=== PATIENT | male | born 1960 | race American Indian/Alaskan Native ===

== ENCOUNTER 2024-09-11 13:51 | Emergency (ER) | payer MEDICAID, SELFPAY ==
[2024-09-11] VITALS (7 sets, daily range): BP systolic 82–125; BP diastolic 50–75; PULSE 83–119; RESP 14–96; TEMP 36.7–37.2; O2SAT 94–96; BMI 32.3
--- NOTE | 2024-09-11 13:55 | XR_ITS ---
Examination: CT brain head without contrast. 2-D sagittal coronal reconstructions Date and time of exam:September 11, 2024 1359 hrs. Comparison August 08, 2024 Indications: Stroke alert, onset focal neurologic deficit altered mental status today CTDI: vol (mGy):52.1 DLP: (mGycm):1046 Technique: Multiple CT axial sections of the brain have been obtained, 5 mm slice thickness. Contrast has not been administered. 2-D sagittal, coronal reconstructions have been obtained Low dose protocols were performed. One or more of the following dose reduction techniques were used; automated exposure control, adjustment of the mA and/or KV according to patient size, use of iterative reconstruction technique. Findings: Interval acute hemorrhage in the left frontal parietal lobe, axial image 16, coronal image 23, 20 x 28 mm Smaller subdural hematoma peripheral to the left cerebral hemisphere, measuring 9 mm in thickness at the level of the frontal horns compared to 19 mm on June 08, 2024, however subdural hematoma peripheral to the left temporal lobe measures 12 mm in thickness compared to 11 mm on August 08, 2024 Larger acute on chronic right subdural hematoma peripheral to the right cerebral hemisphere, at the level of the frontal horns measuring up to 16 mm in thickness Anterior cerebral falx subdural hemorrhage 2 mm in thickness Encephalomalacia left occipital lobe No definite shift of the frontal horns Left craniotomy defects Impression: Interval acute hemorrhage in the left frontal parietal lobe, 20 x 28 mm Larger acute on chronic right subdural hematoma peripheral to the right cerebral hemisphere, at the level of the frontal horns measuring 16 mm in thickness compared to 11 mm on August 08, 2024 Acute on chronic left subdural hematoma peripheral to the left cerebral hemisphere measures 9 mm in thickness compared to 19 mm on June 08, 2024
--- NOTE | 2024-09-11 13:55 | EKG_ITS ---
[facility] Test Date: 2024-09-11 Pat Name: SHER LACY Department: Room: - Gender: Male Tuber Operator: : 1960 Requested By: Igor Priest Order Number: [id number] Reading MD: Igor Priest Measurements Intervals [place] Rate: 109 P: FL: QRS: 46 QRSD: 86 T: 54 QT: 302 QTc: 407 Interpretive Statements ATRIAL FIBRILLATION WITH RAPID VENTRICULAR RESPONSE NONSPECIFIC ST & T-WAVE ABNORMALITY ABNORMAL RHYTHM ECG No previous ECG available for comparison /store/S0/[id number]/ecg/[id number].pdf
--- NOTE | 2024-09-11 13:55 | XR_ITS ---
Examination: CTA carotids with intravenous contrast CTA brain, head with intravenous contrast. 2-D sagittal, coronal reconstructions. 3-D reconstructions. Exam date and time: 03/11/2024 at 1512 hrs. Indications: Stroke alert today, onset focal neurologic deficit, altered mental status slurred speech, CT stroke alert brain scan today interval acute hemorrhage in the left frontal parietal, bilateral central pelvis CTDI: vol (mGy) 11.3 DLP: (mGycm) 430 Technique: Multiple CTA axial brain, head carotid images post intravenous contrast injection 75 cc, [id number]. 2-D sagittal, coronal reconstructions. 3-D reconstructions, 3-D post processing including vascular maximum intensity projection images. Low dose protocols were performed. One or more of the following dose reduction techniques were used; automated exposure control, adjustment of the mA and/or KV according to patient size, use of iterative reconstruction technique. Findings: 18 mm right tracheobronchial lymph node No significant common carotid carotid bifurcation or internal carotid artery stenoses Dominant left vertebral artery with no critical stenoses Basilar artery posterior cerebral artery branches fill Juxtasellar supraclinoid portions both internal carotid arteries fill M1 segment right middle cerebral artery fills with reduced filling of right middle cerebral artery trifurcation branches Left M1 segment middle cerebral artery appears to bifurcate into proximal middle cerebral artery branches with significant decrease in filling left middle cerebral artery trifurcation vessels Impression: No significant neck arterial stenoses Reduced filling middle cerebral artery trifurcation vessels bilaterally, which may relate to mass effect from the patient's bilateral subdural hematomas
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
[2024-09-11 14:23] LABS: Basophils % (Auto) 0 % (0-2.5); Eosinophils % (Auto) 0 % (0-10); Hematocrit 24.6 % (41.0-53.0); Immature Granulocytes % (Auto) 7 % (0-0); Immature Granulocytes Auto 0.41 Thou/mm3 (0.00-0.00); Lymphocytes # (Auto) 1.7 Thou/mm3 (1.0-4.8); Lymphocytes % (Auto) 27 % (10-50); Mean Corpuscular HGB Conc 30.9 g/dl (31.0-37.0); Mean Corpuscular Volume 84 fL (80-100); Monocytes # (Auto) 0.2 Thou/mm3 (0.0-0.8); Monocytes % (Auto) 4 % (0-12); Neutrophils # (Auto) 3.9 Thou/mm3 (1.8-7.7); Neutrophils % (Auto) 62 % (37-80); Nucleated Red Blood Cell # 0.14 Thou/mm3 (0.00-0.00); Nucleated Red Blood Cell % 2 /100 WBC (0); RDW Standard Deviation 48.3 fL (35.1-43.9); Red Blood Count 2.92 Miln/mm3 (4.50-5.90); White Blood Count 6.3 Thou/mm3 (3.8-10.6)
[2024-09-11 14:36] LABS: INR 1.7 (0.9-1.3); Partial Thromboplastin Time 46.6 Seconds (22.0-36.0); Prothrombin Time 18.2 Seconds (9.0-12.2)
[2024-09-11 14:37] LABS: Hemoglobin 7.6 g/dL (13.5-16.0); Platelet Count 27 Thou/mm3 (140-440)
--- NOTE | 2024-09-11 14:43 | PC.CM ---
1342 clinicals sent to [facility]. 1335 called [facility], spoke to Yari and initiated the transfer. She wants to speak with Igor Irving. Call transferred. 1330 received call from Igor Irving that pt needs to be transferred for Interval acute hemorrhage in the left frontal parietal lobe, Larger acute on chronic right subdural hematoma peripheral to the right cerebral hemisphere, Acute on chronic left subdural hematoma peripheral to the left cerebral hemisphere. He stated to transfer pt to [facility] where pt was transferred last time and has his surgery need neuro-surgery services and continuation of care services.
--- NOTE | 2024-09-11 14:49 | PC.CM ---
Addendum entered by Paradise Wu RN 09/11/24 17:36: late note 1659 called [facility], spoke to ERIC and setup the stat transport. stated team is on their way to pick up operator the pt. Addendum entered by Paradise uW RN 09/11/24 17:34: 1735 sent paperwork to [facility] via fax. Addendum entered by Paradise Wu RN 09/11/24 17:29: 1715 Pt is confused, called sister twice to obtain sign on pink form, unable to get hold of the sister. Dr. Patel signed on pt's behalf. Transfer packet is complete including all signatures. I am unable to burn CD for the pt. X-Ray tech informed me due to [employer], there is a problem with CD burner. I informed bedside nurse and charge nurse, unable to burn CD but images were sent to [facility] through [employer]. Ambulance at bedside to pick up operator the pt. Transfer Packet given to bedside nurse. Addendum entered by Paradise Wu RN 09/11/24 16:55: 1651 called and informed charge nurse. Per charge, pt to go via ground transport and nurse nurse is not needed for ground transport. 1649 Breezy from [facility] called back and stated he checked with his crew and crew is not comfortable with transporting the pt via ground until the weather is clear. He stated he can recheck the weather at 1900 and see if the weather is clear then pt might go by air. 1639 called [facility], spoke to Breezy to setup the transport. He stated they are declining due to weather. I asked if [facility] can provide us ground transport. He stated he will call me back. 1630 spoke to Igor Irving, he stated transfer setup by [facility] (Weather is very bad today) If [facility] declines due to weather. Then if I can ask [facility] if they can transport the pt by ground. Addendum entered by Paradise Wu RN 09/11/24 16:21: 1622 called [facility], spoke to Yari regarding accepting info. Pt is accepted at [facility] for ED to ED transfer. Accepting Dr. is Carlito Marina. Call report at [phone]. 2150 received call from ER that pt is accepted at [facility]. I will call [facility] to get accepting info. Original Note: 1448 images sent to [facility] through [facility]. 1442 clinicals sent to [facility]. 1435 called [facility], spoke to Yari and initiated the transfer. She wants to speak with Igor Irving. Call transferred. 1430 received call from Igor Irving that pt needs to be transferred for Interval acute hemorrhage in the left frontal parietal lobe, Larger acute on chronic right subdural hematoma peripheral to the right cerebral hemisphere, Acute on chronic left subdural hematoma peripheral to the left cerebral hemisphere. He stated to transfer pt to [facility] where pt was transferred last time and has his surgery need neuro-surgery services and continuation of care services.
[2024-09-11 14:52] LABS: Alanine Aminotransferase < 7 U/L (10-49); Albumin, Serum 2.7 gm/dL (3.4-4.8); Albumin/Globulin Ratio 0.8 (1.2-2.2); Alkaline Phosphatase 1136 U/L (46-116); Anion Gap 8 (7-16); Aspartate Amino Transferase 41 U/L (0-34); BUN/Creatinine Ratio 32 Ratio (12-20); Bilirubin,Total 0.7 mg/dL (0.3-1.2); Blood Urea Nitrogen 19 mg/dL (9-23); Carbon Dioxide 28.8 mMol/L (20.0-31.0); Chloride 102 mMol/L (98-107); Creatinine (Component) 0.6 mg/dL (0.6-1.3); Estimated Creatinine Clearance 131.2 mL/min (>60); Globulin 3.4 gm/dL (2.3-3.5); Glucose 125 mg/dL (74-106); Magnesium 1.8 mg/dL (1.6-2.6); Osmolality,Calculated 280 (275-295); Potassium 3.2 mMol/L (3.4-5.1); Sodium 139 mMol/L (136-145); Total Protein 6.1 gm/dL (5.7-8.2); Troponin I < 0.020 ng/mL (0.0-0.045); eGFR > 60 See Note
--- NOTE | 2024-09-11 14:52 | PD.TNEURO ---
Tele Neuro Consultation Consultation Date 09/11/24 Most Recent Vital Signs Last Vital Signs Temp 98.0 F 09/11/24 14:30 Pulse 119 H 09/11/24 14:30 Resp 20 09/11/24 14:30 BP 95/56 L 09/11/24 14:30 Pulse Ox 94 L 09/11/24 14:30 O2 Del Method Room Air 09/11/24 14:30 Laboratory-Coagulation Panel PT 18.2 Seconds (9.0-12.2) H 09/11/24 14:10 INR 1.7 (0.9-1.3) H 09/11/24 14:10 APTT 46.6 Seconds (22.0-36.0) H 09/11/24 14:10 Consultation Narrative [facility] Tele[facility]urology Consult [facility] Patient Name:???Odilon Sheriff Date of :???1960 Identification Number:??? 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 He is confused on exam but no weakness noted. CT head with ICH and increased subdural on the left. Significant thrombocytopenia with plt= 27. Recommend keppra, plt transfusion, stat neurosurgical consultation. Recommendation: Medications:? Load with Keppra 1gm now. ? Keppra 500mg bid. Nursing Recommendations: ? Telemetry, IV Fluids?Avoid dextrose containing fluids, Maintain euglycemia ? Head of bed 30 degrees ? Neuro checks q1-2?hrs?during ICU stay ? Once stable neuro checks q4?hrs ? keep BP less than 140/90's with goal of 130/80s Consultations: ? Need Neurosurgery consultation?STAT ? Recommend Speech therapy if failed dysphagia screen ? Physical therapy/Occupational therapy Disposition: ? Neurology will sign off Metrics: Last Known Well: 09/10/2024 17:00:00 Dispatch Time: 09/11/2024 13:48:50 Arrival Time: 09/11/2024 13:51:00 Initial Response Time: 09/11/2024 13:56:22Symptoms: confusion, right sided weakness. Initial patient interaction: 09/11/2024 14:03:31 NIHSS Assessment Completed: 09/11/2024 14:09:18Patient is not a candidate for Thrombolytic. Thrombolytic Medical Decision: 09/11/2024 14:09:19Patient was not deemed candidate for Thrombolytic because of following reasons: Significant head trauma or stroke in previous 3 months . Current intracranial hemorrhage . I personally Reviewed the CT Head and it Showed acute left frontoparietal hemorrhage, larger left subdural acute on chronic, smaller right subdural Primary Provider Notified of Diagnostic Impression and Management Plan on: 09/11/2024 14:50:41 History of Present Illness:Patient is a 64 year old Male. Patient was brought by EMS for symptoms of confusion, right sided weakness. 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 He was noted to be altered today by family and had transient right sided weakness around 5 p.m. yesterday reported. He is bedbound recently since the multiple hospitalizations but is normally verbal and coherent per EMS. Family reported he was altered today. ? Past Medical History: ?Hypertension Medications: No Anticoagulant use? Antiplatelet use:?Yes?plavix Reviewed EMR for current medications Allergies:? Reviewed Social History: Drug Use: No Family History: There is no family history of premature cerebrovascular disease pertinent to this consultation ROS : 14 Points Review of Systems was performed and was negative except mentioned in HPI. Past Surgical History: There Is No Surgical History Contributory To Today?s Visit ? Examination: BP(95/56),?Pulse(119), 1A: Level of Consciousness - Requires repeated stimulation to arouse?+ 2 1B: Ask Month and Age - Could Not Answer Either Question Correctly?+ 2 1C: Blink Eyes & Squeeze Hands - Performs 1 Task?+ 1 2: Test Horizontal Extraocular Movements - Normal?+ 0 3: Test Visual Parra - No Visual Loss?+ 0 4: Test Facial Palsy (Use Grimace if Obtunded) - Normal symmetry?+ 0 5A: Test Left Arm Motor Drift - No Drift for 10 Seconds?+ 0 5B: Test Right Arm Motor Drift - No Drift for 10 Seconds?+ 0 6A: Test Left Leg Motor Drift - Drift, hits bed?+ 2 6B: Test Right Leg Motor Drift - Drift, hits bed?+ 2 7: Test Limb Ataxia (FNF/Heel-Chaudhry) - No Ataxia?+ 0 8: Test Sensation - Normal; No sensory loss?+ 0 9: Test Language/Aphasia - Normal; No aphasia?+ 0 10: Test Dysarthria - Mild-Moderate Dysarthria: Slurring but can be understood?+ 1 11: Test Extinction/Inattention - No abnormality?+ 0 NIHSS Score:?10 ICH Score: 2 Chikis Coma Score:5-12 (+1) Age >= 80:No (0) ICH volume >= 30mL:Yes (+1) Intraventricular hemorrhage:No (0) Infratentorial origin of hemorrhage:No (0) Pre-Morbid Modified Servando Scale:5 Points = Severe disability; bedridden, incontinent and requiring constant nursing care and attention This consult was conducted in real time using interactive audio and video technology. Patient was informed of the technology being used for this visit and agreed to proceed. Patient located in hospital and provider located at home/office setting. Due to the immediate potential for life-threatening deterioration due to underlying acute neurologic illness, I spent 46 minutes providing critical care. This time includes time for face to face visit via telemedicine, review of medical records, imaging studies and discussion of findings with providers, the patient and/or family. Dr Catherine Blair [facility] For Inpatient follow-up with [facility] physician please call [facility] at . As we are not an outpatient service for any post hospital discharge needs please contact the hospital for assistance. If you have any questions for the [facility] physicians or need to reconsult for clinical or diagnostic changes please contact us via [facility] at .
[2024-09-11] MEDS: SODIUM CHLORIDE 0.9% 500 ML 500 ML 999 ML IV (15:02)
[2024-09-11] MEDS: levETIRAcetam INJ 100 MG/ML VIAL 5ML 1000 MG IVP (15:02)
[2024-09-11 15:34] LABS: Collection Type, Urine Clean Catch; Squamous Epithelial Cell,Urine 0 /hpf (0-5)
[2024-09-11 16:00] LABS: Bacteria,Urine 4+; Bilirubin,Urine Negative (Negative); Blood,Urine 3+ (Negative); Color,Urine Yellow (Lt Yel-Yel); Glucose, Urine Negative (Negative); Ketones,Urine Negative (Negative); Leukocyte Esterase,Urine Positive (Negative); Nitrite,Urine Negative (Negative); Protein,Urine 1+ (Neg - Trace); RBC,Urine 23 /hpf (0-3); Specific Gravity,Urine 1.037 (1.001-1.035); Uric Acid Crystals,Urine 4+; Urobilinogen,Urine Negative mg/dL (0.0-1.0); WBC,Urine 41 /hpf (0-5)
[2024-09-11 16:01] LABS: Slide Review Platelets confirmed
[2024-09-11 16:03] LABS: Path Review Blood Smear Sent to Pathologist
[2024-09-11 16:09] LABS: Clarity,Urine Turbid (Clear/Hazy)
[2024-09-11] MEDS: TRANEXAMIC ACID INJ 1,000 MG/10 ML VIAL 1000 MG IV (16:26)
[2024-09-11 16:47] LABS: Amphetamine/Methamp Scrn,U Negative (Negative); Barbiturate Screen,Urine Negative (Negative); Benzodiazepines Screen,Urine Negative (Negative); Benzoylecgonine Screen, Ur Negative (Negative); Fentanyl Screen,Urine Negative (Negative); Opiate Screen,Urine Negative (Negative); THC Screen,Urine Negative (Negative)
--- NOTE | 2024-09-11 17:52 | EDNOTE_ITS ---
Emergency Room Addendum Addendum Narrative: Prior to transfer at 1750 2 PM the patient had 2 blood pressures 125/70 with a MAP of 87 a second blood pressure with a systolic of 118. At this time if EMS allows the patient to bend his arm he gets an abnormal reading we were able to take it twice with no downtrending of the blood pressure. 1752: Discussed with Dr. Alejandro neurosurgery at [facility] who agrees that as long as the blood pressure and route stays above 70 MAP that EMS does not need to call him and no medications are needed if needed they could give him a small bolus however I reported to EMS if they feel uncomfortable or feel the patient becomes unstable they need to reroute to the closest hospital. EMS at this time feels comfortable transporting the patient.
--- NOTE | 2024-09-11 18:01 | PC.NURSE ---
REPORT [facility] TO [facility] AND SPOKE WITH RAND. ALL QUESTIONS ANSWERED.
== END 2024-09-11 18:00 | disposition short-term general hospital (02) ==
LOC: SERX 15:16
PROVIDERS: Registered Nurse General Practice; Emergency Provider Emergency Medicine; PCP Physician Assistant
DX: I62.01 Nontraumatic acute subdural hemorrhage (principal); I62.03 Nontraumatic chronic subdural hemorrhage; I48.91 Unspecified atrial fibrillation; I10 Essential (primary) hypertension; R29.707 NIHSS score 7; Z87.891 Personal history of nicotine dependence; Z75.1 Person awaiting admission to adequate facility elsewhere
CPT/HCPCS: 36415; 70450; 70496; 70498; 80053; 80307; 81001; 83735; 84484; 84703; 85025; 85610; 85730; 86850; 86900; 86901; 86923; 86965; 87086; 93005; 96361; 96374; 99285; A4649; J1953; J3490; J7040; Q9967

== ENCOUNTER 2024-09-13 20:36 | Emergency (ER) | payer MEDICAID, SELFPAY ==
[2024-09-13 20:47] VITALS: BP 110/81; PULSE 80; RESP 18; TEMP 36.5; O2SAT 100
--- NOTE | 2024-09-13 20:50 | PC.NURSE ---
SPOKE WITH MARLEE FROM [facility] [phone] AND SHE IS AWARE OF SITUATION, SHE STATES SHE WILL CALL OUR INTELLECTUAL PROPERTY LAWYER IN AM
--- NOTE | 2024-09-13 22:13 | PD.EDADULT ---
ED General RME/HPI General Chief complaint: General Adult/Misc Complain Stated complaint: HOSPICE Time Seen by Provider: 09/13/24 22:12 Arrival date/time: 09/13/24 20:36 RME / HPI RME / HPI narrative: Dr. Cornejo?s Main ED Evaluation: 64yo male with recently dx bilateral subdural hematomas BIBA from [facility] for social service coordinator consultation. Patient was discharged from [facility] in [place] and was transferred today to [facility] on hospice. EMS endorses the patient's next-of-kin was not there to sign the consents for hospice paperwork, so facility staff sent the patient over for social service coordinator consultation. Full ROS is unobtainable due to the patient's medical condition. Related Data Allergies Allergy/AdvReac Type Severity Reaction Status Date / Time No Known Allergies Allergy Verified 08/09/24 01:58 Review of Systems Review of Systems ROS Unobtainable: unobtainable due to medical condition Past Medical History Past Medical History NEUROLOGIC: Positive Neurological Disorders and Subdural Hematoma; Negative Seizures CARDIAC: Negative Congestive Heart Failure RESPIRATORY: Negative Chronic Obstructive Pulmonary Disease (COPD) GENITOURINARY: Negative Renal Disease ENDOCRINE: Negative Diabetes Mellitus Type 1 or Diabetes Mellitus Type 2 OTHER HISTORY: Negative Blood Transfusions, Blood Transfusion Reaction or Anesthesia Reactions Social History SMOKING STATUS: Never smoker SUBSTANCE USE: unknown ED Exam Narrative Physical exam: GENERAL APPEARANCE: AxOx self, generally well-appearing, no acute distress. HEENT: NC, surgical scar to the upper scalp that is C/D/I. MMM. EOMI, clear conjunctiva, oropharynx clear. NECK: Supple without lymphadenopathy. No stiffness or restricted ROM. HEART: Normal rate and regular rhythm, normal S1/S1, no m/r/g LUNGS: CTAB, moving air well. No crackles or wheezes are heard. ABDOMEN: Soft, nontender, nondistended with good bowel sounds heard. BACK: No midline C/T/L spine pain or deformity, No CVAT, no obvious deformity. EXTREMITIES: Without cyanosis, clubbing or edema. MUSCULOSKELETAL: FROM of all major joints, no chest tenderness NEUROLOGICAL: Grossly nonfocal. Alert and oriented, moving all 4 extremities. CN not formally tested but appear grossly intact. Skin: Warm and dry without any rash. Ecchymosis of various stages throughout the BUE. Course Course Course Narrative: 0600: Care signed out to the next oncoming provider. Past medical, surgical, social and family history reviewed. Vitals and home medications reviewed. Results and treatment plan discussed. They will assume the care of the patient at this time and will follow the patient, pending social service coordinator consultation. Quality Measures none Orders Category Date Time Status Consult Silver Cleaner NOW Care 09/14/24 01:19 Active Vital Signs Vital signs: Vital Signs Temperature 97.7 F 09/13/24 20:47 Pulse Rate 80 09/13/24 20:47 Respiratory Rate 18 09/13/24 20:47 Blood Pressure 110/81 09/13/24 20:47 Pulse Oximetry (%) 100 09/13/24 20:47 Oxygen Delivery Method Nasal Cannula 09/13/24 20:47 Oxygen Flow Rate 2 09/13/24 20:47 [facility] Patient data External records reviewed:: [facility] previous records (Per chart review, patient was seen here on 09/11/24 for bilateral subdural hematomas.) Clinical information provided by:: EMS Social determinants that could affect healthcare access:: none Patient has the following chronic illnesses:: subdural hematoma How is presenting disease/condition affected by chronic disease/condition?: uneffected by Evaluation data The following diagnostics were reviewed and interpreted by me:: other (specify) (none) Lab and/or radiology exams considered but not ordered:: none Interpretation Summary: none Medications Medications considered but not ordered:: none Medication administrations:: see above, if any Consultations Consultation(s) initiated? (list below): No Diagnosis Differential Diagnosis ED Complaint MDM: encounter for medical screening, encounter for social service coordinator consultation Most likely diagnosis given after review of the tests above:: see below Admission Indicated Admission indicated?: not indicated Explain why admission is indicated or not indicated:: Patient is pending social service coordinator in the AM. Admission Request Was there a request for admission?: No Disposition Plan Disposition Plan: other (specify) (Signed out to the next oncoming provider at 0600 pending social service coordinator consultation.) Medical Decision Making MDM Narrative MDM Narrative: Scribe Attestation: 09/13/24 - Deborah Varela, scribing for and in the presence of Dr. Cornejo. Differential Diagnosis Differential Diagnosis: encounter for medical screening, encounter for social service coordinator consultation Discharge Plan Problem List Clinical Impression: Subdural hematoma, acute, Hospice care patient Patient/Caregiver Discharge Instructions Print Language: Macanese
[2024-09-14 01:09] VITALS: BP 100/61; PULSE 80; RESP 18; TEMP 36.5; O2SAT 100
[2024-09-14 06:31] VITALS: BP 88/57; PULSE 81; RESP 14; TEMP 36.7; O2SAT 98
--- NOTE | 2024-09-14 06:55 | EDNOTE_ITS ---
Emergency Room Addendum <Johanna Hopkins - Last Filed: 09/14/24 06:56> Addendum Narrative: 0600: Care assumed from Dr. Cornejo, the previous shift emergency physician. Past medical, surgical, social and family history reviewed. Vitals and home medications reviewed. I will assume the care of the patient at this time, pending consultation with social services designee. Please refer to the emergency department record for history and examination from initial visit.? Nursing notes reviewed by me. Vital signs reviewed by me. [place] medical records reviewed by me. <Cosmo Mo MD - Last Filed: 09/14/24 15:35> Addendum Narrative: 0600: Care assumed from Dr. Cornejo, the previous shift emergency physician. Past medical, surgical, social and family history reviewed. Vitals and home medications reviewed. I will assume the care of the patient at this time, pending consultation with social services designee. Please refer to the emergency department record for history and examination from initial visit.? Nursing notes reviewed by me. Vital signs reviewed by me. [place] medical records reviewed by me. 3:34 PM, head nurse layo informed me that the patient has been accepted to [facility]. And he has a ride to that facility now. Diagnosis: Encounter for hospice care placement Condition: Stable for transfer to hospice care
--- NOTE | 2024-09-14 07:33 | PC.CC ---
ASWJoselin was consulted by Maame with [facility] who reports patient was a transfer from [facility] to [facility], however, Patient's sister Gaby who was suppose to sign patient into [facility] has been [place] since yesterday with her phone going straight to voicemail. ASW attempted to make contact with patient's sister but the phone goes straight to voicemail. Maame reports she is concerned and [place] to [place] contact with patient's sister. ASW to continue to attempt to make contact with patient's sister.
[2024-09-14 08:15] VITALS: BP 95/69; PULSE 86; RESP 18; TEMP 36.4; O2SAT 97
--- NOTE | 2024-09-14 09:27 | PC.CC ---
Joselin Scott spoke with Maame with [facility] who reports they were able to reach the patient's sister Gaby and she will be going to [facility] to sign documents for the patient. Maame requested transportation be arranged for 1500. KAILA spoke with Negrita from [facility] who reports transportation at 1500 works.
[2024-09-14 09:57] VITALS: BP 104/69; PULSE 81; RESP 16; TEMP 36.8; O2SAT 97
--- NOTE | 2024-09-14 10:10 | PC.CC ---
Joselin BRIGHT attempted to arrange [facility]. [facility] does not cover transportation. Transportation will be arranged via [facility].
--- NOTE | 2024-09-14 10:56 | PC.CC ---
Joselin BRIGHT informed RN. Dr. Chely Hendrix, microstrategy bi developer [employer] that transportation is being arranged with [facility] for 153
[2024-09-14 12:06] VITALS: BP 105/68; PULSE 89; RESP 19; TEMP 36.1; O2SAT 97
== END 2024-09-14 16:00 | disposition skilled nursing facility (03) ==
PROVIDERS: Emergency Provider Emergency Medicine
DX: Z51.5 Encounter for palliative care (principal); I62.01 Nontraumatic acute subdural hemorrhage
CPT/HCPCS: 99283